=== PATIENT | female | born 1980 | race Caucasian/White ===

== ENCOUNTER 2020-11-06 05:18 | Day surgery (SDC) | payer OTHER ==
[2020-11-05 08:55] VITALS: BMI 38.0
[2020-11-06 14:53] VITALS: TEMP 97.8
[2020-11-06 15:59] VITALS: BP 143/79; PULSE 77
== END 2020-11-06 15:50 | disposition home or self-care (01) ==
LOC: JASU-ENDO 05:18
PROVIDERS: ATTEND Internal Medicine Gastroenterology
PROC: 0DB68ZX Excision of Stomach, Via Natural or Artificial Opening Endoscopic, Diagnostic (ICD-10-PCS; principal; 2020-11-06 12:30)
DX: D50.9 Iron deficiency anemia, unspecified (principal); K29.50 Unspecified chronic gastritis without bleeding
CPT/HCPCS: 81025; 88305-TC; 88342-TC